=== PATIENT | female | born 1975 | race Caucasian/White ===

== ENCOUNTER → 2016-07-19 | Outpatient (CLI) | payer MEDICAID ==
--- NOTE | 2016-07-19 12:01 | US ---
Thyroid Ultrasound History: Reported history of nodules. Comparison: None available. Technique: Longitudinal and transverse ultrasound imaging of the thyroid gland. Findings: The right lobe of the thyroid measures 1.2 x 1.7 x 4.7 cm. The right lobe of the thyroid is homogeneous with no nodules identified. The left lobe of the thyroid measures 1.4 x 1.1 x 4.8 cm. There is a mildly heterogeneous 5 x 5 x 3 mm nodule in the mid/inferior left thyroid, that may be partially cystic. A benign 1 x 2 x 2 mm cyst is present in the medial aspect of the mid left thyroid. The isthmus is normal. Impression: 5-mm left thyroid nodule, of doubtful clinical significance. If previous ultrasounds are available, I would happy to compare them.
== END ==
LOC: BRMIMAGING 11:19
PROVIDERS: ATTEND Registered Nurse
DX: E04.1 Nontoxic single thyroid nodule (principal)

== ENCOUNTER 2016-08-18 12:42 | Day surgery (SDC) | payer MEDICAID ==
[2016-08-18] MEDS ORDERED: LIDOCAINE 1% 5 ML SDV ONE (12:56)
[2016-08-18] MEDS ORDERED: fentaNYL 100 MCG/2 ML INJ ONE (13:59)
[2016-08-18] MEDS ORDERED: MIDAZOLAM 2 MG/2 ML VIAL ONE ×2 (13:59→14:10)
--- NOTE | 2016-08-18 14:44 | GPN ---
[f rep st] PROCEDURE NOTE PROCEDURE: Colonoscopy to the terminal ileum. PREOPERATIVE DIAGNOSES: Weight loss, constipation, change in bowel habits. POSTOPERATIVE DIAGNOSES: Normal colonoscopy to the terminal ilium, normal- appearing terminal ileum and normal colonoscopy, normal colon. ANESTHESIA TIME: 20 minutes. INDICATIONS: A 41-year-old woman with history of lupus, has had problems with eating and weight loss. She has also had change in bowel habits with constipation. She has no family history of colon cancer or colon polyps. Presents today for colonoscopy. PHYSICAL EXAMINATION: VITAL SIGNS: Stable. LUNGS: Clear. CARDIAC: Normal S1, S2 without murmur. Procedure was explained to the patient. The risks and benefits of the procedure were outlined to the patient. Informed consent was obtained. PREOPERATIVE MEDICATIONS: 175 mcg of fentanyl, 8 mg of Versed. DESCRIPTION OF PROCEDURE: The patient was placed in the left lateral decubitus position. PCF-180 video colonoscope was passed into the rectum under direct visualization to the terminal ileum. Terminal ileum appeared normal. The colonoscope was withdrawn with inspection of colonic segments. The cecum, ascending colon, hepatic flexure, transverse colon, splenic flexure, descending colon, sigmoid colon, and rectum were normal. Retroflexed view of the rectum was normal. Colonoscope was un-retroflexed and withdrawn. IMPRESSION: 1. Normal terminal ileum. 2. Normal colonoscopy to the cecum. RECOMMENDATIONS: 1. The patient was given discharge instruction and contact information for questions or emergencies. 2. Resume regular diet. 3. The patient may resume preprocedure medications. 4. Recall Colonoscopy 10 years. 5. Follow up with Dr. Delarosa. /[id number]/MODL MTDD
== END 2016-08-18 15:00 | disposition home or self-care (01) ==
LOC: FSGY 12:42 → EDSTATUS 13:21 → FIMAGING 15:00
PROVIDERS: ATTEND Internal Medicine Gastroenterology
PROC: 0DJDXZZ Inspection of Lower Intestinal Tract, External Approach (ICD-10-PCS; principal; 2016-08-18 14:28)
DX: R63.4 Abnormal weight loss (principal); R10.9 Unspecified abdominal pain; K59.00 Constipation, unspecified
CPT/HCPCS: J2250; J3010